=== PATIENT | female | born 1995 | race Caucasian/White ===

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

== ENCOUNTER 2017-07-17 13:33 | Emergency (ER) | payer OTHER ==
[2017-07-17 13:49] VITALS: BP 133/69
--- NOTE | 2017-07-17 15:03 | UC ---
Skin Complaint HPI - HPI Summary HPI Summary: 07/14/17. SLEPT IN A PLACE WITH BEDBUGS. HAS ITCHY WELTS ALL OVER HER BUDY. NO PAIN. NO FEVER. RASH NOT SPREADING. STATES SHE IS ALLERGIC TO BUG BITES. NO THORAT CLOSURE. NO LIP SWELLING. NO SOB. - History of Current Complaint Chief Complaint: UCSkin Time Seen by Provider: 07/17/17 14:24 Stated Complaint: BUG BITES RASH Hx Obtained From: Patient Hx Last Menstrual Period: one year ago Onset/Duration: Gradual Onset, Lasting Days, Still Present Skin Exposure Onset/Duration: Days Ago Onset Severity: Mild Current Severity: Mild Pain Intensity: 1 Pain Scale Used: 0-10 Numeric Character: Pruritus, Redness, Raised Aggravating Factor(s): Nothing Alleviating Factor(s): Nothing Associated Signs & Symptoms: Positive: Rash. Negative: Difficulty Breathing, Fever, Chills, Throat Tightening, Abdominal Pain, Bruising, Tenderness, Red Streaks Related History: Insect Bite/Sting, Possible Reaction to: Insect - Allergy/Home Medications Allergies/Adverse Reactions: Allergies Allergy/AdvReac Type Severity Reaction Status Date / Time Sulfa Antibiotics Allergy Intermediate Hives Verified 09/24/16 14:07 Penicillins Allergy Hives Verified 07/17/17 13:50 Review of Systems Constitutional: Negative Skin: Rash Eyes: Negative ENT: Negative Respiratory: Negative Cardiovascular: Negative Gastrointestinal: Negative Genitourinary: Negative Motor: Negative Neurovascular: Negative Musculoskeletal: Negative Neurological: Negative Psychological: Negative Is Patient Immunocompromised?: No All Other Systems Reviewed And Are Negative: Yes PMH/Surg Hx/FS Hx/Imm Hx Previously Healthy: Yes - Surgical History Surgical History: None - Family History Known Family History: Positive: None, Other - DM - aunt, gallblader removed - mother Family History: positive for biploar disorder in paternal half brother - Social History Occupation: Unemployed Lives: With Family Alcohol Use: Rare Substance Use Type: None Smoking Status (MU): Light Every Day Tobacco Smoker Type: Cigarettes Amount Used/How Often: 3-4 CIG/DAY Length of Time of Smoking/Using Tobacco: 3 YEARS Have You Smoked in the Last Year: Yes Household Exposure Type: Cigarettes - Immunization History Most Recent Influenza Vaccination: 07/11/14 Most Recent Pneumonia Vaccination: never Vaccination Up to Date: Yes Physical Exam Triage Information Reviewed: Yes Appearance: Well-Appearing, No Pain Distress, Well-Nourished Vital Signs: Initial Vital Signs Temp 98.0 F 07/17/17 13:45 Pulse 113 07/17/17 13:45 Resp 18 07/17/17 13:45 BP 133/69 07/17/17 13:45 Pulse Ox 100 07/17/17 13:45 Vital Signs Reviewed: Yes Eye Exam: Normal ENT Exam: Normal Dental Exam: Normal Neck exam: Normal Neck: Positive: Supple, Nontender, No Lymphadenopathy Respiratory Exam: Normal Respiratory: Positive: Chest non-tender, Lungs clear, Normal breath sounds, No respiratory distress, No accessory muscle use Cardiovascular Exam: Normal Cardiovascular: Positive: RRR, No Murmur, Pulses Normal, Brisk Capillary Refill Abdominal Exam: Normal Abdomen Description: Positive: Nontender, No Organomegaly Musculoskeletal Exam: Normal Neurological Exam: Normal Psychological Exam: Normal Skin: Positive: rashes - DIFFUSE Course/Dx - Differential Diagnoses - Skin Complaint Differential Diagnoses: Cellulitis, Contact Dermatitis, Poison Dianne, Poison [place], Tick Born Illness, Viral Exanthem - Diagnoses Provider Diagnoses: BED BUGS Discharge - Discharge Plan Condition: Stable Disposition: HOME Prescriptions: predniSONE TAB* [Deltasone TAB*] 60 mg PO DAILY #9 tab Patient Education Materials: Insect Bite or Sting (ED), Bed Bugs (ED) Referrals: Ramos Gray NP [Primary Care Provider] -
== END 2017-07-17 14:49 | disposition home or self-care (01) ==
LOC: UCEAST 13:33
DX: T14.8XXA Other injury of unspecified body region, initial encounter (principal); W57.XXXA Bitten or stung by nonvenomous insect and other nonvenomous arthropods, initial encounter; Y92.9 Unspecified place or not applicable; R21 Rash and other nonspecific skin eruption; Z11.4 Encounter for screening for human immunodeficiency virus [HIV]; F17.210 Nicotine dependence, cigarettes, uncomplicated
CPT/HCPCS: 36415; 86703; 99212; G0463

== ENCOUNTER 2017-08-25 02:24 | Emergency (ER) | payer OTHER, MEDICAID ==
[2017-08-25 02:41] VITALS: BP 148/84
== END 2017-08-25 05:40 | disposition left against medical advice (07) ==
LOC: ED 02:24
DX: R07.9 Chest pain, unspecified (principal); Z53.21 Procedure and treatment not carried out due to patient leaving prior to being seen by health care provider
CPT/HCPCS: 93005

== ENCOUNTER 2017-10-05 12:41 | Emergency (ER) | payer MEDICAID, OTHER ==
--- NOTE | 2017-10-05 13:54 | ED ---
GI/ HPI - HPI Summary HPI Summary: 22 female presents to ED with complaints of needing testing. Patient states this past Tuesday09/30/17, she had sexual intercourse with ex and did not use protection. Partner does have history of chlamydia per patient however does not know STD history currently. States she also had history of chlamydia. States she has been having increased discharge, white/clear in color "sometimes clumpy " and she believes an odor at times, began 3 days ago. Denies pain. Stats she also feels pressure when she urinates and some burning/itching at times. Also has had times of having to go to urinate but does not urinate much. She is concerned for STD's. No abdominal pain, fever/chills, dysparenuia or genitalia rash/bumps. No other complaints. No PMHx. Denies blood in urine. Normal bowel movements. Denies pain. . Has copper IUD and is without concern for . 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 - History of Current Complaint Chief Complaint: EDUrogenitalProblems Time Seen by Provider: 10/05/17 13:15 Stated Complaint: NEEDS TESTING Hx Obtained From: Patient Hx Last Menstrual Period: one year ago Onset/Duration: Started Days Ago - ~3, Still Present Timing: Intermittent Current Severity: None Pain Intensity: 0 Location of Pain: None Pain Characteristics: Pressure Associated Signs and Symptoms: Positive: Dysuria, New Sexual Partner, UTI Symptoms Additional Signs & Symptoms: Positive: STD, - 1, Para - 1, IUD - mirena. Negative: Vaginal Bleeding, Vaginal Discharge Aggravating Factor(s): Urination Alleviating Factor(s): Nothing - Allergy/Home Medications Allergies/Adverse Reactions: Allergies Allergy/AdvReac Type Severity Reaction Status Date / Time MS Sulfa Antibiotics Allergy Intermediate Hives Verified 08/25/17 02:40 [Sulfa Antibiotics] MS Penicillins [Penicillins] Allergy Hives Verified 08/25/17 02:40 PMH/Surg Hx/FS Hx/Imm Hx Endocrine/Hematology History: Denies: Hx Diabetes, Hx Thyroid Disease Cardiovascular History: Denies: Hx Hypertension Respiratory History: Denies: Hx Asthma, Hx Chronic Obstructive Pulmonary Disease (COPD) GI History: Denies: Hx Ulcer Psychiatric History: Reports: Hx Attention Deficit Hyperactivity Disorder - per H+P, Other Psychiatric Issues/Disorders - Reported to have Oppositional [place] Disorder and Borderline Personality. 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 Denies: Hx Hepatitis, Hx Human Immunodeficiency Virus (HIV), Traveled Outside the [place] in Last 30 Days - Family History Known Family History: Positive: None, Other - DM - aunt, gallblader removed - mother Family History: positive for biploar disorder in paternal half brother - Social History Alcohol Use: Rare Hx Substance Use: No Substance Use Type: Reports: None Hx Tobacco Use: Yes Smoking Status (MU): Light Every Day Tobacco Smoker Type: Cigarettes Amount Used/How Often: 3-4 CIG/DAY Length of Time of Smoking/Using Tobacco: 3 YEARS Have You Smoked in the Last Year: Yes Review of Systems Constitutional: Negative Cardiovascular: Negative Respiratory: Negative Positive: see HPI, burning, discharge, frequency All Other Systems Reviewed And Are Negative: Yes Physical Exam Triage Information Reviewed: Yes Vital Signs On Initial Exam: Initial Vitals Temp Pulse Resp BP Pulse Ox 97.5 F 71 17 109/85 99 10/05/17 13:08 10/05/17 13:08 10/05/17 13:08 10/05/17 13:08 10/05/17 13:08 Vital Signs Reviewed: Yes Appearance: Positive: Well-Appearing, No Pain Distress, Well-Nourished Skin: Positive: Warm, Skin Color Reflects Adequate Perfusion, Dry. Negative: Cold, Numb, Cyanosis @ Eyes: Positive: Normal Neck: Positive: Supple, Nontender Respiratory/Lung Sounds: Positive: Clear to Auscultation, Breath Sounds Present. Negative: Rales, Rhonchi, Wheezes Cardiovascular: Positive: Normal, RRR, Pulses are Symmetrical in both Upper and Lower Extremities. Negative: Murmur, Rub Abdomen Description: Positive: Nontender, No Organomegaly, Soft Bowel Sounds: Positive: Present Pelvic Exam: Positive: external exam normal, speculum exam normal, bimanual exam normal, no cerv. motion tender, no masses. Negative: active bleeding, discharge - normal discharge amount and in appearance, tender w/ cervical motion , tender adnexa, tender uterus Musculoskeletal: Positive: Normal, Strength/ROM Intact Neurological: Positive: Normal, Sensory/Motor Intact, Alert, Oriented to Person Place, Time Diagnostics - Vital Signs Vital Signs Temp Pulse Resp BP Pulse Ox 10/05/17 13:08 97.5 F 71 17 109/85 99 - Laboratory Lab Statement: Any lab studies that have been ordered have been reviewed, and results considered in the medical decision making process. GIGU Course/Dx - Course Course Of Treatment: cultures obtained. patient requested testing for all STD including blood work. wanted to be treated preventatively for STDs. although normal physical exam findings and urinalysis. 1+ of leuk and blood, jeni wait for culture result before treatment. no high suscpicion for BV, yanira or UTI at this time due to physical exam findings, PMHx, normal vitals. attempted azithromycin and ceftriaxone however patient refused ceftriaxone. ONLY RECEIVED AZITHROMYCIN. understands concerns and risks for not obtaining this medication and that she may have to return if + gonorrhea. will wait for final culture results. educated on safe sex measures and STD education. Knows to call to ask about lab results pending. no other concern for other etiology at this time. - Diagnoses Differential Diagnoses - Female: Candidiasis, STD, Urinary Tract Infection, Vaginitis Provider Diagnoses: Vaginal discharge, Screening examination for STD (sexually transmitted disease) , Dysuria Discharge - Discharge Plan Condition: Stable Disposition: HOME Patient Education Materials: Sexually Transmitted Diseases (ED), Condom Use (ED ), Safe Sex (ED), Dysuria (ED) Referrals: Ramos Gray, PULP COOKER [Primary Care Provider] - Additional Instructions: You will hear about culture results if positive, pending 3-7 days, including urine culture results. You may need to return for treatment if certain culture comes back positive due to refusal of IM medication. If you do not hear however are still wondering and would like to know results have been received and are negative please call [phone]. Any new or worsening symptoms please seek medical attention promptly. Follow up with PCP and OBGYN.
[2017-10-05 14:13] LABS: Urine Appearance Clear; Urine Blood 1+ (Negative); Urine Color Yellow; Urine Ketones Negative (Negative); Urine Protein Negative (Negative); Urine Specific Gravity 1.013 (1.010-1.030); Urine Urobilinogen Negative (Negative)
[2017-10-05] MEDS ORDERED: Azithromycin TAB* 250 MG PO ONE (14:49)
[2017-10-05] MEDS ORDERED: cefTRIAXone VIAL(*) 250 MG VIAL IM ONE (14:51)
[2017-10-05 15:25] VITALS: BP 112/85
--- NOTE | 2017-10-07 09:16 | ED ---
Progress - Progress Note Progress Note: Patient's vaginal culture reveals Gardnerella. She does report she has symptoms of vaginal irritation and discharge. She was treated in the ED empirically for gonorrhea and chlamydia. She continues to have symptoms as the Gardnerella has not been treated yet. She is in [facility] at this time and would prefer her prescription be called into the [facility] at [address] Tarsha called into this pharmacy. Education about condition, prevention, medication (including do not take with ETOH), danger signs and symptoms and when to go to the ED. Patient agrees with plan. Course/Dx - Course Course Of Treatment: cultures obtained. patient requested testing for all STD including blood work. wanted to be treated preventatively for STDs. although normal physical exam findings and urinalysis. 1+ of leuk and blood, jeni wait for culture result before treatment. no high suscpicion for BV, yanira or UTI at this time due to physical exam findings, PMHx, normal vitals. attempted azithromycin and ceftriaxone however patient refused ceftriaxone. ONLY RECEIVED AZITHROMYCIN. understands concerns and risks for not obtaining this medication and that she may have to return if + gonorrhea. will wait for final culture results. educated on safe sex measures and STD education. Knows to call to ask about lab results pending. no other concern for other etiology at this time. - Diagnoses Provider Diagnoses: Vaginal discharge, Screening examination for STD (sexually transmitted disease) , Dysuria
== END 2017-10-05 15:23 | disposition home or self-care (01) ==
LOC: ED 12:41
DX: N89.8 Other specified noninflammatory disorders of vagina (principal); R30.0 Dysuria; F17.210 Nicotine dependence, cigarettes, uncomplicated; Z11.3 Encounter for screening for infections with a predominantly sexual mode of transmission
CPT/HCPCS: 81003; 81015; 87086; 87480; 87491; 87510; 87591; 87661; 96372; 99282; A9270-GY

== ENCOUNTER 2017-10-30 17:31 | Emergency (ER) | payer MEDICAID ==
[2017-10-30] MEDS ORDERED: Clindamycin CAP* 150 MG PO ONE (19:26)
--- NOTE | 2017-10-30 19:29 | ED ---
Throat Pain/Nasal Congestion - HPI Summary HPI Summary: 22-year-old female presents with dental pain past 5 days. She states she has a history of dental pain. this patient doesn't have a dentist. She denies any drainage from the area. She denies any fevers. She has a chest pain or shortness of breath. She is concerned is infected. She denies any swelling to the area. She states pain is worst the past day . She has been taking ibuprofen for her pain. - History of Current Complaint Chief Complaint: EDDentalPain Time Seen by Provider: 10/30/17 19:04 - Allergies/Home Medications Allergies/Adverse Reactions: Allergies Allergy/AdvReac Type Severity Reaction Status Date / Time Penicillins Allergy Intermediate Hives Verified 10/30/17 17:38 Sulfa (Sulfonamide Allergy Intermediate Hives Verified 10/30/17 17:38 Antibiotics) PMH/Surg Hx/FS Hx/Imm Hx Endocrine/Hematology History: Denies: Hx Diabetes, Hx Thyroid Disease Cardiovascular History: Denies: Hx Hypertension Respiratory History: Denies: Hx Asthma, Hx Chronic Obstructive Pulmonary Disease (COPD) GI History: Denies: Hx Ulcer Psychiatric History: Reports: Hx Attention Deficit Hyperactivity Disorder - per H+P, Other Psychiatric Issues/Disorders - Reported to have Oppositional [place] Disorder and Borderline Personality. 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 Denies: Hx Hepatitis, Hx Human Immunodeficiency Virus (HIV), Traveled Outside the [place] in Last 30 Days - Family History Known Family History: Positive: None, Other - DM - aunt, gallblader removed - mother Family History: positive for biploar disorder in paternal half brother - Social History Alcohol Use: Rare Hx Substance Use: No Substance Use Type: Reports: None Hx Tobacco Use: Yes Smoking Status (MU): Light Every Day Tobacco Smoker Type: Cigarettes Amount Used/How Often: 3-4 CIG/DAY Length of Time of Smoking/Using Tobacco: 3 YEARS Have You Smoked in the Last Year: Yes Review of Systems Negative: Fever Positive: Dental Pain Negative: Chest Pain Negative: Shortness Of Breath All Other Systems Reviewed And Are Negative: Yes Physical Exam Triage Information Reviewed: Yes Vital Signs On Initial Exam: Initial Vitals Temp Pulse Resp BP Pulse Ox 97.9 F 88 15 137/85 99 10/30/17 17:35 10/30/17 17:35 10/30/17 17:35 10/30/17 17:35 10/30/17 17:35 Vital Signs Reviewed: Yes Appearance: Positive: Well-Appearing Skin: Positive: Warm, Dry Head/Face: Positive: Normal Head/Face Inspection Eyes: Positive: Normal, EOMI, FILOMENA, Conjunctiva Clear ENT: Positive: Normal ENT inspection, Pharynx normal, TMs normal Dental: Positive: Percussion Tenderness @ - 17, Gross Decay/Caries @ - 17. Negative: Abscess @ Neck: Positive: Supple, Nontender, No Lymphadenopathy Respiratory/Lung Sounds: Positive: Clear to Auscultation, Breath Sounds Present Cardiovascular: Positive: Normal, RRR Abdomen Description: Positive: Nontender, Soft Bowel Sounds: Positive: Present Musculoskeletal: Positive: Normal Neurological: Positive: Normal Psychiatric: Positive: Normal Diagnostics - Vital Signs Vital Signs Temp Pulse Resp BP Pulse Ox 10/30/17 17:35 97.9 F 88 15 137/85 99 - Laboratory Lab Statement: Any lab studies that have been ordered have been reviewed, and results considered in the medical decision making process. EENT Course/Dx - Course Course Of Treatment: 22-year-old female presents with dental pain past 5 days. She states she has a history of dental pain. this patient doesn't have a dentist. She denies any drainage from the area. She denies any fevers. She has a chest pain or shortness of breath. She is concerned is infected. She denies any swelling to the area. She states pain is worst the past day . She has been taking ibuprofen for her pain. on exam tenderness 14 with no abscess felt. will treat with clindamycin and have follow up with primary. patient understands and agrees with plan. - Differential Diagnoses Differential Diagnoses: Dental Abscess, Dental Caries, Fractured Tooth - Diagnoses Provider Diagnoses: Pain, dental Discharge - Discharge Plan Condition: Good Disposition: HOME Prescriptions: Clindamycin Cap(NF) [Clindamycin Cap 300 mg Cap(NF)] 300 mg PO TID #29 cap Patient Education Materials: Toothache (ED) Referrals: Ramos Gray NP [Primary Care Provider] - Additional Instructions: Take antibiotics: three times a day for 10 days Use normal pain medication Avoid hard, crunchy food until seen by dentist Return to ED if develop any new or worsening symptoms Establish care with dentist as soon as possible Images - Images Dental: 1 - pain
[2017-10-30 19:45] VITALS: BP 130/88
== END 2017-10-30 19:48 | disposition home or self-care (01) ==
LOC: ED 17:31
DX: K08.89 Other specified disorders of teeth and supporting structures (principal); F17.210 Nicotine dependence, cigarettes, uncomplicated; Z88.0 Allergy status to penicillin; Z88.2 Allergy status to sulfonamides
CPT/HCPCS: 99282; A9270-GY

== ENCOUNTER 2018-12-21 19:33 | Emergency (ER) | payer SELFPAY ==
[2018-12-21 19:48] VITALS: BP 116/81
--- NOTE | 2018-12-21 20:44 | UC ---
Complaint Female HPI - HPI Summary HPI Summary: Approximately 40 days post LMP, desired , confirmed with tests at [facility] and [facility]. She has had 2 ultrasound scans without a heart but gestational sac seen. Was diagnosed with UTI at [facility], has taken 5 days of antibiotics, but has persistent cramping. Here to ensure that the UTI has resolved. Has increased vaginal discharge. USS pending on 12/25 at [facility], and has OB appointment pending later next week. but thinks that she had a and miscarriage in September 2018, when she had heavy flow, cramping and thinks that she passed material. First complicated by pain and cramping. Declined a pelvic check tonight and also declined self swab with [facility]. - History Of Current Complaint Chief Complaint: UCGI Stated Complaint: ABDOMINAL COMPLAINT Hx Obtained From: Patient Hx Last Menstrual Period: one year ago Onset/Duration: Gradual Onset, Lasting Weeks Timing: Constant Severity Initially: Mild Severity Currently: Mild Pain Intensity: 4 Character: Cramping Aggravating Factor(s): Nothing Alleviating Factor(s): Nothing Associated Signs And Symptoms: Positive: Negative - Risk Factors Ectopic Risk Factor: Negative - ruled out at [facility] Ovarian Torsion Risk Factor: Negative - Allergies/Home Medications Allergies/Adverse Reactions: Allergies Allergy/AdvReac Type Severity Reaction Status Date / Time Penicillins Allergy Intermediate Hives Verified 12/21/18 19:48 Sulfa (Sulfonamide Allergy Intermediate Hives Verified 12/21/18 19:48 Antibiotics) Home Medications: Home Medications NK [No Home Medications Reported] 12/21/18 [History Confirmed 12/21/18] PMH/Surg Hx/FS Hx/Imm Hx Previously Healthy: Yes - Surgical History Surgical History: None Surgery Procedure, Year, and Place: n/a - Family History Known Family History: Positive: Cardiac Disease, Diabetes - aunt with DM, Other - DM - aunt, gallblader removed - mother Family History: positive for biploar disorder in paternal half brother - Social History Occupation: Unemployed Lives: With Family - lives with boyfriend. Currently her son is living with an aunt Alcohol Use: None Substance Use Type: None Smoking Status (MU): Heavy Every Day Tobacco Smoker Type: Cigarettes Amount Used/How Often: 3-4 CIG/DAY Length of Time of Smoking/Using Tobacco: 3 YEARS Have You Smoked in the Last Year: Yes Household Exposure Type: Cigarettes - Immunization History Most Recent Influenza Vaccination: 07/11/14 Most Recent Pneumonia Vaccination: never Vaccination Up to Date: Yes Review of Systems All Other Systems Reviewed And Are Negative: Yes Constitutional: Positive: Negative Skin: Positive: Negative Eyes: Positive: Negative ENT: Positive: Negative Respiratory: Positive: Negative Cardiovascular: Positive: Negative Gastrointestinal: Positive: Negative Genitourinary: Positive: Frequency Motor: Positive: Negative Neurovascular: Positive: Negative Musculoskeletal: Positive: Negative Neurological: Positive: Negative Psychological: Positive: Negative Is Patient Immunocompromised?: No Physical Exam Triage Information Reviewed: Yes Appearance: Well-Appearing, Pain Distress - mild Vital Signs: Initial Vital Signs Temp 97.6 F 12/21/18 19:43 Pulse 104 12/21/18 19:43 Resp 20 12/21/18 19:43 BP 116/81 12/21/18 19:43 Pulse Ox 100 12/21/18 19:43 Vital Signs Reviewed: Yes ENT: Positive: Normal ENT inspection Respiratory: Positive: Lungs clear, Normal breath sounds Cardiovascular: Positive: RRR, No Murmur Abdomen Description: Positive: No Organomegaly, Soft, Other: - diffuse tenderness without guarding or peritoneal signs.. Negative: CVA Tenderness (R) , CVA Tenderness (L), Distended, Guarding Musculoskeletal Exam: Normal Neurological: Positive: Alert, Muscle Tone Normal Psychological Exam: Normal Skin Exam: Normal Complaint Female Dx - Differential Dx/Diagnosis Differential Diagnosis/HQI/PQRI: , Urinary Tract Infection Provider Diagnosis: Discharge - Sign-Out/Discharge Documenting (check all that apply): Patient Departure All imaging exams completed and their final reports reviewed: No Studies - Discharge Plan Condition: Stable Disposition: HOME Patient Education Materials: (ED) Referrals: No Primary Care Phys,NOPCP [Primary Care Provider] - Additional Instructions: Today's urine does not show signs of infection. Please follow up next week with the center and with OBGYN as arranged. If you have increased bleeding or cramping, please follow up in the emergency room. - Billing Disposition and Condition Condition: STABLE Disposition: Home
== END 2018-12-21 20:56 | disposition home or self-care (01) ==
LOC: UCEAST 19:33
DX: Z34.81 Encounter for supervision of other normal pregnancy, first trimester (principal); Z88.0 Allergy status to penicillin; Z88.2 Allergy status to sulfonamides; F17.210 Nicotine dependence, cigarettes, uncomplicated
CPT/HCPCS: 81003; 99211; G0463

== ENCOUNTER 2019-02-26 14:48 | Emergency (ER) | payer SELFPAY ==
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
--- OUTSIDE RECORDS SUMMARY | 2019-02-26 15:19 | XMS REPORT | Continuity of Care Document ---
:1995 External Reference #:[id number] Author Name Kimberly Duke MD, PHD Address [address], [address] [place] [address] Care Team Providers Name Role Phone Kimberly Duke MD, PHD Care Team Information Set Up And Charger Unavailable Kimberly Duke MD, PHD Primary Care Physician Unavailable Payers Date Identification Numbers Payment Provider Subscriber Policy Number: [id number] [place] [employer] Georgette Acosta PayID: [id number] [address] [address] [place] [address] Expires: 2018 Policy Number: [id number] [place] Medicaid Georgette Acosta PayID: [id number] [address] [address] [place] [address] Expires: 2019 Policy Number: [id number] Medicaid Georgette Acosta PayID: [id number] [address] [place] [address] Problems Active Problems Provider Date Nicotine withdrawal [...] (10 or fewer cigarettes/day) Smoking Status Reviewed: 01/12/19 Light tobacco smoker (10 or fewer cigarettes/day) Allergies, Adverse Reactions, Alerts Active Allergies Reaction Severity Comments Date Ampicillin 12/28/2018 Sulfa Drugs 12/28/2018 Medications Active Medications SIG Qnty Indications Ordering Provider Date Ondansetron take one tablet 15tabs Kimberly Duke, 01/31/2019 4mg Tablets by mouth every PHD APARNA Dispers 8 hours as needed for vomiting. Valacyclovir HCL 1 by mouth 90tabs Kimberly Duke, 01/23/2019 500mg every day PHD APARNA Tablets Complete 1 tab by mouth 90tabs Z3A.09 Kimberly Duke, 01/12/2019 every day PHD APARNA 14-0.4mg Tablets Dha 2 cap by mouth 120caps Z3A.09 Kimberly Duke, 01/12/2019 200mg twice a day MD PHD Capsules with meals D2000 Ultra Strength 1 cap by mouth 60caps Z3A.09 Kimberly Duke, 2018 twice a day wc , PHD 2000Unit Capsules HM Vitamin B6 1 tab by mouth 90tabs O21.0 Kimberly Duke, 12/28/2018 100mg three times a PHD APARNA Tablets day as needed for nausea Gummies/Dha 2 tab by mouth 180units N91.2 Kimberly Duke, 2018 & Folic Acid every day , PHD 0.4-32.5mg Chewtabs Unisom Sleepmelts 1/2 tab by 60tabs N91.2 Kimberly Duke, 12/28/2018 25mg mouth four PHD APARNA Tablets Dispers times a day as needed for nausea History Medications No Active Medications Unknown 12/28/2018 - 12/28/2018 Vital Signs Date Vital Result Comment 01/12/2019 2:37pm BP Systolic 144 mmHg BP Diastolic 83 mmHg Body Temperature 98.1 F Heart Rate 94 /min Respiratory Rate 18 /min Height 67 inches 5'7" Weight 194.00 lb BMI (Body Mass Index) 30.4 kg/m2 BSA (Body Surface Area) 2.00 m2 Parlin body weight in kilograms 61 kg 12/28/2018 10:19am BP Systolic 133 mmHg BP Diastolic 81 mmHg Body Temperature 98.6 F Heart Rate 87 /min Respiratory Rate 18 /min Height 67 inches 5'7" Weight 196.00 lb BMI (Body Mass Index) 30.7 kg/m2 BSA (Body Surface Area) 2.00 m2 Parlin body weight in kilograms 61 kg O2 % BldC Oximetry 98 % Results Test Date Facility Test Result H/L Range Note HPV High Risk - 01/12/2019 [facility] HPV High Risk Results on 1, 2 Alt Ref [facility] [address] [place] [address] [phone] Laboratory test 01/12/2019 [facility] Hepatitis B Reactive . [address] [place] [address] Antibody [phone] Urine Culture 01/12/2019 [facility] Urine Culture URETHRAL CAROLANN [address] [place] [address] [phone] Quantity 10,000 - 50,000 <SEE NOTE> 4 Laboratory 01/12/2019 [facility] Vitamin 12.8 Low 30.0-100.0 5 test finding [address] D,25-Hydroxy ng/mL [place], [place] [id number] [phone] HSV II,Igg,Type Specific 5.03 index High 0.00-0.90 6 HIV Screen 4TH 01/12/2019 [facility] HIV Screen 4th Non Reactive Non Reactive [address] Reflex [address] [place] [address] wRfx [phone] Laboratory 01/12/2019 [facility] Treponema Negative Negative test finding [address] [place] [address] [place] [phone] CBC 01/12/2019 [facility] White Blood 7.6 K/uL N 3.1-10.7 W/Automated [address] Count Diff [place], [place] [id number] [phone] Red Blood Count 4.22 M/uL N 3.90-5.40 [...] 40.4-72.8 Lymph % 27.7 % N 20.0-42.0 Stanton % 5.8 % N 4.3-13.2 Eo% 2.6 % N 0.0-6.6 Bas% 0.3 % N 0.0-1.1 Immature Grans 0.7 % N 0.0-5.0 NRBC % 0.0 /100WBC < 10/ 100 WBC Neut# 4.78 K/uL N 1.8-7.0 Lymph # 2.10 K/uL N 1.0-4.0 Stanton # 0.44 K/uL N 0.3-0.9 Eos # 0.20 K/uL N 0.0-0.5 Baso # 0.02 K/uL N 0.0-0.1 Immature Grans Absolute 0.05 K/uL NRBC # 0.00 K/uL Genital Culture W/ Gram 01/12/2019 [facility] Gram Stain <pending> Stain [address] [place], [place] [id number] [phone] Gram Stain GRAM STAIN INDIC <SEE NOTE> 8 Gram Stain MODERATE GR POS. <SEE NOTE> 9 Gram Stain NO WHITE BLOOD C <SEE NOTE> 10 Genital Culture GENITAL CAROLANN Cystic 01/12/2019 [facility] Cystic [id number] Fibrosis,Dna [address] Fibrosis Analysis [place], [place] [id number] [phone] Chlmaydia/GC/Tri 01/12/2019 [facility] Chlamydia NEGATIVE Negative chomonas PCR [address] trachomatis, [place] [address] PCR [phone] Neisseria gonorrhoeae, PCR NEGATIVE Negative 12 Trichomonas vaginalis PCR NEGATIVE Negative Specimen Type: Genital Laboratory test 01/12/2019 [facility] Rubella IgG 2.0 index Immune [address] Antibody >0.99 [place] [address] [phone] Laboratory test 01/12/2019 [facility] Hepatitis B <pending> finding [address] [place] [address] Antigen [phone] Hepatitis C Antibody < 0.1 s/corat 0.0-0.9 14 Lead,Blood (Adult) <1 g/dL 0-4 15 Type And Screen 01/12/2019 [facility] Patient Blood Type A POS N [address] [place] [address] [phone] Antibody Screen Negative N Negative Ua RFX Micro & Culture II 01/12/2019 [facility] Urine Color STRAW Yellow [address] [place] [address] [phone] Urine Clarity CLEAR Clear Urine Glucose - Dipstick NEGATIVE mg/dL Negative Urine Bilirubin - Dipstick NEGATIVE Negative Urine Ketone NEGATIVE mg/dL Negative Urine Specific Rush <=1.005 Low 1.010-1.030 Urine Blood NEGATIVE Negative [...] Amphetamines (Urine) Negative Abuse-Urine Screen [address] [place], [place] [address] [phone] Barbiturates (Urine) Negative Benzodiazepines (Urine) Negative Cannabinoids (Urine) Negative Cocaine Metabolite (Urine) Negative Methadone (Urine) Negative Opiates (Urine) Negative Urine Cutoffs * 16 Glycohemoglobin A1c 01/12/2019 [facility] Glycohemoglobin 4.7 % N 4.2-6.3 17 [address] (A1c) [place], [place] [address] [phone] eAG 88 mg/dL Urine Dipstick 01/12/2019 [facility] Inhouse Ua Color yellow Yellow Ua Clarity clear Clear Ua Leuko negative Negative Ua Nitrite negative Negative Ua Urobilinogen 0.2 0.2 - 1.0 E.U./dL Ua Protein negative Negative Ua PH 6.5 6.5-7.5 Ua Blood negative Negative Ua Specific Rush 1.010 1.010-1.030 Ua Ketones negative Negative Ua Bilirubin negative Negative Ua Glucose negative Negative Urine Dipstick 12/28/2018 [facility] Inhouse Ua Color YELLOW Yellow Ua Clarity CLEAR Clear Ua Leuko Trace Negative Ua Nitrite Negative Negative Ua Urobilinogen Negative Low 0.2 - 1.0 E.U./dL Ua Protein Negative Negative Ua PH 5.0 Low 6.5-7.5 Ua Blood Trace Negative Ua Specific Rush 1.000 Low 1.010-1.030 Ua Ketones 1+ High Negative Ua Bilirubin Negative Negative Ua Glucose Negative Negative Urine HCG 12/28/2018 [facility] Urine HCG POSITIVE Abnormal Negative 18, (Qualitative) [address] (Qualitative) 19 [place] [address] [phone] Source: URINE, CLEAN CAT <SEE NOTE> 20 Urine Culture 12/28/2018 [facility] Urine Culture NO GROWTH: [address] FINAL <[place] [address] NOTE> [phone] Ua RFX Micro & 12/28/2018 [facility] Urine Color YELLOW Yellow Culture II [address] [place] [address] [phone] Urine Clarity CLEAR Clear Urine Glucose - Dipstick NEGATIVE mg/dL Negative Urine Bilirubin - Dipstick NEGATIVE Negative Urine Ketone NEGATIVE mg/dL Negative Urine Specific Rush <=1.005 Low 1.010-1.030 Urine Blood NEGATIVE Negative Urine PH 6.0 Low 6.5-7.5 Urine Protein - Dipstick NEGATIVE mg/dL Negative Urine Urobilinogen - Dipstick 0.2 E.U./dL N 0.2-1.0 Urine Nitrite - Dipstick NEGATIVE Negative Urine Leuk Esterase SMALL Abnormal Negative Urine RBC 0-2 rbc/hpf 0-2 Urine WBC 2-5 wbc/hpf 0-7 Urine Epithelial Cells MODERATE /lpf None Seen 22 Urine Bacteria MODERATE Abnormal None Seen Urine Amorph Sediment SMALL Negative Source: URINE, CLEAN CAT <SEE NOTE> 23 1 Z3A.09 2 Hard copy of report to be sent by mail Report may be viewed in Clinical Review, or in PCI under Medical Record Forms 3 Non Reactive: Inconsistent with immunity, less than 10 mIU/mL Reactive: Consistent with immunity, greater than 9.9 mIU/mL Verified by repeat analysis 4 10,000 - 50,000 CFU/mL 5 Vitamin D deficiency has been defined by the [place] of [employer] and an Endocrine Society practice guideline as a level of serum 25-OH vitamin D less than 20 ng/mL (1,2). The Endocrine Society went on to further define vitamin D insufficiency as a level between 21 and 29 ng/mL (2). 1. IOM ([place] of Medicine). 2010. Dietary reference intakes for calcium and D. [place]: The National Academies Press. 2. Niall MF, Jose Juan WYMAN, Leoncio FARFAN, et al. Evaluation, treatment, and prevention of vitamin D deficiency: an Endocrine Society clinical practice guideline. JCEM. 2010; 96(5):1911-30. Performed at: [address] [id number] Mast Maker: Nga Swenson MD, Phone: [phone] 6 Negative <0.91 Equivocal 0.91 - 1.09 Positive >1.09 Note: Negative indicates no antibodies detected to HSV-2. Equivocal may suggest early infection. If clinically appropriate, retest at later date. Positive indicates antibodies detected to HSV-2. Performed at: [address] [id number] Mast Maker: Nga Swenson MD, Phone: [phone] 7 Performed at: [address] [id number] Mast Maker: Nga Swenson MD, Phone: [phone] 8 GRAM STAIN INDICATES NORMAL GENITAL CAROLANN 9 MODERATE GR POS. BACILLI SUGGESTIVE OF LACTOBACILLUS SP. 10 NO WHITE BLOOD CELLS 11 FORWARDED TO REFERENCE LABORATORY. 12 A negative result for either C. trachomatis and/or N. gonorrhoeae does not preclued an infection because results are dependent on adequate specimen collection, absence of inhibitors, and sufficient DNA to be detected. 13 Non-immune <0.90 Equivocal 0.90 - 0.99 Immune >0.99 Performed at: [address] [id number] Mast Maker: Nga Swenson MD, Phone: [phone] Performed at: [address] [id number] Mast Maker: Coty Merlos MD, Phone: [phone] Values <5.0 IU/mL are considered negative for IgG antibodies to rubella virus. 14 INFCE Result Units: s/co ratio Negative: < 0.8 Indeterminate: 0.8 - 0.9 Positive: > 0.9 The CDC recommends that a positive HCV antibody result be followed up with a HCV Nucleic Acid Amplification test (176099). 15 Analysis by inductively coupled plasma/mass spectrometry (ICP/MS) This test was developed and its performance characteristics determined by [employer]. It has not been cleared or approved by the Food and Drug Administration. Environmental Exposure: WHO Recommendation <20 Occupational Exposure: OSHA Lead Std 40 ANNMARIE 30 Detection Limit=1 16 URINE SPECIMENS ARE SCREENED AT THE LISTED CUTOFFS DRUG CLASS INITIAL TEST LEVEL Amphetamines 1000 ng/mL Barbiturates 200 ng/mL Benzodiazepines 200 ng/mL Cannabinoids 50 ng/mL Cocaine Metabolite 300 ng/mL Methadone 300 ng/mL Opiates 300 ng/mL Any PRESUMPTIVE POSITIVE findings are UNCONFIRMED. Confirmatory testing is suggested if findings are unexpected. Please contact laboratory if confirmatory testing is desired. SPECIMENS ARE HELD FOR 72 HOURS. 17 Elevated levels of HbA1c suggest the need for more aggressive treatment of glycemia. The [place] [employer] recommends that a primary goal of therapy should be a HbA1c of <7% and that physicians should re-evaluate the treatment regimen in patients with HbA1c values consistently >8%. 18 N91.2 19 Method: Quidel QuickVue One-Step Immunoassay 20 URINE, CLEAN CATCH 21 NO GROWTH: FINAL REPORT 22 POSSIBLE UROGENITAL CONTAMINATION. 23 URINE, CLEAN CATCH Encounters Type Date Location Provider Dx Diagnosis Office Visit 12/28/2018 [facility] Kimberly Duke, N91.2 Amenorrhea, 10:15a Eitan Carlisle MD, PHD unspecified O21.0 Mild hyperemesis gravidarum F17.203 Nicotine dependence unspecified, with withdrawal Plan of Treatment Future Appointment(s):02/09/2019 1:00 pm - Kimberly Duke [facility] PHD [facility]12/28/2018 - Kimberly Duke MD, PHDN91.2 Amenorrhea, unspecifiedNew Medication: Gummies/Dha & Folic Acid 0.4-32.5 mg - 2 tab by mouth every dayUnisom Sleepmelts 25 mg - 1/2 tab by mouth four times a day as needed for nauseaFollow up:2 week follow up for initial visit. Records releases for [facility] delivery records center.O21.0 Mild hyperemesis gravidarumNew Medication:HM Vitamin B6 100 mg - 1 tab by mouth three times a day as needed for nauseaComments:Discussed Healthy Families -F17.203 Nicotine dependence unspecified, with withdrawal
[2019-02-26 16:20] LABS: Urine Appearance Cloudy; Urine Bacteria 1+ (Absent); Urine Bilirubin Negative (Negative); Urine Blood 1+ (Negative); Urine Color Yellow; Urine Glucose Negative (Negative); Urine Ketones Negative (Negative); Urine Nitrite Negative (Negative); Urine Protein Negative (Negative); Urine Red Blood Cell 1+(3-5/hpf) (Absent); Urine Specific Gravity 1.005 (1.010-1.030); Urine Squamous Epithelial Cell Present (Absent); Urine Urobilinogen Negative (Negative); Urine White Blood Cell Trace(0-5/hpf) (Absent)
[2019-02-26] MEDS ORDERED: NS 0.9% 1000 ML** 1,000 ML IV ONE (17:29)
[2019-02-26] MEDS ORDERED: Acetaminophen TAB* 325 MG PO ONE (18:02)
--- NOTE | 2019-02-26 18:14 | ED ---
Abdominal Pain/Female - HPI Summary HPI Summary: This patient is a 23 year old F presenting to [facility] with a chief complaint of abdominal cramps since 0630 this morning which have persisted throughout the day which is rated a 5/10. She states that she is 15-16 weeks and was feeling nauseas this morning which she thought was her morning sickness, but denies any vomiting. She stated that she went into town for a appointment but her doctor canceled. She stated that the pain became worse and she couldnt ignore it so she took APAP and came to [facility]. She stated that she has had one successful and has had one . Her GPA is 3, 1, 1. She stated that yesterday she had some light spotting with a brownish-red color but did not notice any clots. She had her first at 19. She denies any SOB, CP , fever, chills, headaches, diarrhea and recent sicknesses. APAP helped to alleviate her pain briefly but states that it is still present. She has no aggravating factors. She is currently unemployed and is living with her boyfriend. Patients medication reviewed this visit. - History of Current Complaint Chief Complaint: EDOBProblems Stated Complaint: 15 WEEKS PREG , CRAMPING, Time Seen by Provider: 02/26/19 17:29 Hx Obtained From: Patient ?: Yes - 15-16 weeks Onset/Duration: Sudden Onset - 0630 am, Lasting Hours, Still Present Timing: Constant Severity Initially: Moderate Severity Currently: Moderate Pain Intensity: 5 Pain Scale Used: 0-10 Numeric Location: Suprapubic Radiates: No Character: Cramping Aggravating Factor(s): Nothing Alleviating Factor(s): Nothing Associated Signs and Symptoms: Positive: Vaginal Bleeding - had spotting yesterday, brownish-red, Nausea, Other: - abdominal pain described as cramping NEGATIVE: SOB, vomiting and diarrhea. Negative: Fever, Cough, Chest Pain, Urinary Symptoms, Vomiting, Diarrhea Allergies/Adverse Reactions: Allergies Allergy/AdvReac Type Severity Reaction Status Date / Time Penicillins Allergy Intermediate Hives Verified 02/26/19 14:58 Sulfa (Sulfonamide Allergy Intermediate Hives Verified 02/26/19 14:58 Antibiotics) Home Medications: Home Medications ValACYclovir (*) [Valtrex 500 mg (*)] 500 mg PO DAILY 02/26/19 [History Confirmed 02/26/19] PMH/Surg Hx/FS Hx/Imm Hx Previously Healthy: No Endocrine/Hematology History: Denies: Hx Diabetes, Hx Thyroid Disease Cardiovascular History: Denies: Hx Hypertension Respiratory History: Denies: Hx Asthma, Hx Chronic Obstructive Pulmonary Disease (COPD) GI History: Denies: Hx Ulcer Psychiatric History: Reports: Hx Attention Deficit Hyperactivity Disorder - per H+P, Other Psychiatric Issues/Disorders - Reported to have Oppositional [place] Disorder and Borderline Personality. 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 Denies: Hx Hepatitis, Hx Human Immunodeficiency Virus (HIV), Traveled Outside the [place] in Last 30 Days - Family History Known Family History: Positive: Cardiac Disease, Diabetes - aunt with DM, Other - DM - aunt, gallblader removed - mother Family History: positive for biploar disorder in paternal half brother - Social History Occupation: Unemployed Lives: With Family - boyfriend Alcohol Use: None Hx Substance Use: No Substance Use Type: Reports: None Hx Tobacco Use: Yes Smoking Status (MU): Light Every Day Tobacco Smoker Type: Cigarettes Amount Used/How Often: 3-4 CIG/DAY Length of Time of Smoking/Using Tobacco: 3 YEARS Have You Smoked in the Last Year: Yes Review of Systems Negative: Fever, Chills Negative: Chest Pain Negative: Shortness Of Breath, Cough Positive: Abdominal Pain - desbribed as cramping, Nausea. Negative: Vomiting, Diarrhea Negative: Headache All Other Systems Reviewed And Are Negative: Yes Physical Exam Vital Signs On Initial Exam: Initial Vitals Temp Pulse Resp BP Pulse Ox 97.8 F 98 18 136/78 97 02/26/19 14:53 02/26/19 14:53 02/26/19 14:53 02/26/19 14:53 02/26/19 14:53 Diagnostics - Vital Signs Vital Signs Temp Pulse Resp BP Pulse Ox 02/26/19 14:53 97.8 F 98 18 136/78 97 - Laboratory Lab Results: Lab Results 02/26/19 Range/Units 16:01 Urine Color Yellow Urine Appearance Cloudy Urine pH 6.0 (5-9) Ur Specific Union 1.005 L (1.010-1.030) Urine Protein Negative (Negative) Urine Ketones Negative (Negative) Urine Blood 1+ A (Negative) Urine Nitrate Negative (Negative) Urine Bilirubin Negative (Negative) Urine Urobilinogen Negative (Negative) Ur Leukocyte Esterase Trace A (Negative) Urine WBC (Auto) Trace(0-5/hpf) (Absent) Urine RBC (Auto) 1+(3-5/hpf) A (Absent) Ur Squamous Epith Cells Present A (Absent) Urine Bacteria 1+ A (Absent) Urine Glucose Negative (Negative) Result Diagrams: 02/26/19 18:14 Lab Statement: Any lab studies that have been ordered have been reviewed, and results considered in the medical decision making process. - Ultrasound US Ultrasound Interpretation Completed By: Radiologist Summary of Ultrasound Findings: Single living intrauterine fetus with an ultrasound age of 16 weeks 3 days. which is concordant with the clinical age and shows appropriate interval. growth. No sonographic findings to correlate with patient's symptomatology. ED physician has reviewed this report. Discharge - Sign-Out/Discharge Documenting (check all that apply): Patient Departure - discharge Patient Received Moderate/Deep Sedation with Procedure: No - Discharge Plan Condition: Stable Disposition: HOME Patient Education Materials: Nausea and Vomiting in (ED), ( ED) Referrals: [facility] [Provider Group] Kimberly Duke MD [Primary Care Provider] - Additional Instructions: -stay well hydrated - drink plenty of non-caffinated beverages - Okay to take tylenol every 6 hours for pain - eat small, frequent meals - contact the [facility] nurse midwives to schedule a follow-up appointment If you have vaginal bleeding, vaginal leaking fluid, vomiting or any other concerns it is recommended you be re-evaluated - Billing Disposition and Condition Condition: STABLE Disposition: Home - Attestation Statements Document Initiated by Scribe: Yes Documenting Scribe: Artis Gongora Provider For Whom Scribe is Documenting (Include Credential): Hellen Parker MD Scribe Attestation: Artis Cervantes, scribed for Hellen Parker MD on 03/01/19 at 1358. Status of Scribe Document: Viewed
[2019-02-26 18:27] LABS: ABS Basophils 0.1 10^3/ul (0-0.2); ABS Eosinophils 0.1 10^3/ul (0-0.6); ABS Lymphocytes 2.4 10^3/ul (1.0-4.8); ABS Monocytes 0.5 10^3/ul (0-0.8); ABS Neutrophils 7.1 10^3/ul (1.5-7.7); Eosinophil % 1.5 %; Hematocrit 37 % (35-47); Lymphocyte % 23.3 %; Mean Corpuscular HGB Conc 35 g/dL (31-36); Mean Corpuscular Hemoglobin 31 pg (27-31); Mean Corpuscular Volume 87 fL (80-97); Mean Platelet Volume 8.7 fL (7.4-10.4); Platelet Count 224 10^3/uL (150-450); Red Blood Count 4.26 10^6 /uL (3.70-4.87); Red Cell Distribution Width 13 % (10-15); White Blood Count 10.2 10^3/uL (3.5-10.8)
[2019-02-26 20:32] VITALS: BP 135/79
== END 2019-02-26 20:30 | disposition home or self-care (01) ==
LOC: ED 14:48
DX: O21.9 Vomiting of pregnancy, unspecified (principal); Z3A.15 15 weeks gestation of pregnancy; Z88.2 Allergy status to sulfonamides; Z88.0 Allergy status to penicillin; F17.210 Nicotine dependence, cigarettes, uncomplicated
CPT/HCPCS: 36415; 76815; 81003; 81015; 83880; 84702; 85025; 86900; 86901; 87086; 99283; A9270-GY

== ENCOUNTER 2019-03-05 19:38 | Emergency (ER) | payer SELFPAY ==
--- OUTSIDE RECORDS SUMMARY | 2019-03-05 19:51 | XMS REPORT | Continuity of Care Document ---
:1995 External Reference #:[id number] Author Name Kimberly Duke MD, PHD Address [address] [facility], [address] [place] [address] Care Team Providers Name Role Phone Kimberly Duke MD, PHD Care Team Information Master Certified Rv Technician Unavailable Kimberly Duke MD, PHD Primary Care Physician Unavailable Payers Date Identification Numbers Payment Provider Subscriber Policy Number: [id number] Molina Medicaid Georgette Acosta PayID: [id number] [address] [address] [place] [address] Expires: 2018 Policy Number: [id number] Molina Medicaid Georgette Acosta PayID: [id number] [address] [address] [place] [address] Expires: 2019 Policy Number: [id number] Medicaid Georgette Acosta PayID: [id number] [address] [place] [address] Problems Active Problems Provider Date Nicotine withdrawal [...] kg/m2 BSA (Body Surface Area) 1.94 m2 [place] body weight in kilograms 61 kg O2 % BldC Oximetry 98 % 01/12/2019 2:37pm BP Systolic 144 mmHg BP Diastolic 83 mmHg Body Temperature 98.1 F Heart Rate 94 /min Respiratory Rate 18 /min Height 67 inches 5'7" Weight 194.00 lb BMI (Body Mass Index) 30.4 kg/m2 BSA (Body Surface Area) 2.00 m2 [place] body weight in kilograms 61 kg 12/28/2018 10:19am BP Systolic 133 mmHg BP Diastolic 81 mmHg Body Temperature 98.6 F Heart Rate 87 /min Respiratory Rate 18 /min Height 67 inches 5'7" Weight 196.00 lb BMI (Body Mass Index) 30.7 kg/m2 BSA (Body Surface Area) 2.00 m2 [place] body weight in kilograms 61 kg O2 % BldC Oximetry 98 % Results Test Date Facility Test Result H/L Range Note Urinalysis Profile 02/26/2019 [facility] Laboratory Urine Color Yellow [phone] Urine Appearance Cloudy Urine Specific [place] 1.005 Low 1.010-1.030 Urine pH 6.0 N 5-9 Urine Urobilinogen Negative Negative Urine Ketones Negative Negative Urine Protein Negative Negative Urine Leukocytes Trace Abnormal Negative Urine Blood 1+ Abnormal Negative Urine Nitrite Negative Negative Urine Bilirubin Negative Negative Urine Glucose Negative Negative Urine White Blood Cell Trace(0-5/hpf) Absent Urine Red Blood Cell 1+(3-5/hpf) Abnormal Absent Urine Bacteria 1+ Abnormal Absent Urine Squamous Epithelial Cell Present Abnormal Absent Urine Dipstick 02/09/2019 [facility] Ua Color dedrick Yellow Ua Clarity clear Clear Ua Leuko negative Negative Ua Nitrite negative Negative Ua Urobilinogen 0.2 0.2 - 1.0 E.U./dL Ua Protein negative Negative Ua PH 6.5 6.5-7.5 Ua Blood negative Negative Ua Specific [place] 1.025 1.010-1.030 Ua Ketones negative Negative Ua Bilirubin negative Negative Ua Glucose negative Negative Ua RFX Micro & Culture 02/08/2019 [facility] Urine Color YELLOW Yellow 1 II [address] [place] [address] [phone] Urine Clarity CLEAR Clear Urine Glucose - Dipstick NEGATIVE mg/dL Negative Urine Bilirubin - Dipstick NEGATIVE Negative Urine Ketone NEGATIVE mg/dL Negative Urine Specific [place] <=1.005 Low 1.010-1.030 Urine Blood TRACE Negative [...] NOTE> 2 HPV High Risk - 01/12/2019 [facility] HPV High Risk Results on 3, 4 Alt Ref Lab [address] [place], [place] [id number] [phone] Laboratory test 01/12/2019 [facility] Hepatitis B Reactive . [address] [place] [address] Antibody [phone] Urine Culture 01/12/2019 [facility] Urine Culture URETHRAL CAROLANN [address] [place], [place] [address] [phone] Quantity 10,000 - 50,000 <SEE NOTE> 6 Laboratory 01/12/2019 [facility] Vitamin 12.8 Low 30.0-100.0 7 test finding [address] D,25-Hydroxy ng/mL [place], [place] [address] [phone] HSV II,Igg,Type Specific 5.03 index High 0.00-0.90 8 HIV Screen 4TH 01/12/2019 [facility] HIV Screen 4th Non Reactive Non Reactive 9 Gen Reflex [address] [place] [address] wRfx [phone] Laboratory 01/12/2019 [facility] Treponema Negative Negative test finding [address] [place] [address] [place] [phone] CBC 01/12/2019 [facility] White Blood 7.6 K/uL N 3.1-10.7 W/Automated [address] Count Diff [place], [place] [address] [phone] Red Blood Count 4.22 M/uL N 3.90-5.40 [...] 40.4-72.8 Lymph % 27.7 % N 20.0-42.0 [place] % 5.8 % N 4.3-13.2 Eo% 2.6 % N 0.0-6.6 Bas% 0.3 % N 0.0-1.1 Immature Grans 0.7 % N 0.0-5.0 NRBC % 0.0 /100WBC < 10/ 100 WBC Neut# 4.78 K/uL N 1.8-7.0 Lymph # 2.10 K/uL N 1.0-4.0 [place] # 0.44 K/uL N 0.3-0.9 Eos # 0.20 K/uL N 0.0-0.5 Baso # 0.02 K/uL N 0.0-0.1 Immature Grans Absolute 0.05 K/uL NRBC # 0.00 K/uL Genital Culture W/ 01/12/2019 [facility] Gram Stain GRAM STAIN INDIC [address] <SEE NOTE> [place] [address] [phone] Gram Stain MODERATE GR POS. <SEE NOTE> 11 Gram Stain NO WHITE BLOOD C <SEE NOTE> 12 Genital Culture GENITAL CAROLANN Cystic 01/12/2019 [facility] Cystic [phone] 13 Fibrosis,Dna [address] [place] [address] [phone] Chlmaydia/GC/Tri 01/12/2019 [facility] Chlamydia NEGATIVE Negative chomonas PCR [address] trachomatis, [place] [address] PCR [phone] Neisseria gonorrhoeae, PCR NEGATIVE Negative 14 Trichomonas vaginalis PCR NEGATIVE Negative Specimen Type: Genital Laboratory test 01/12/2019 [facility] Rubella IgG 2.0 index Immune [address] Antibody >0.99 [place] [address] [phone] Laboratory test 01/12/2019 [facility] Hepatitis C < 0.1 0.0-0.[address] Antibody s/corat [place], [place] [address] [phone] Lead,Blood (Adult) <1 g/dL 0-4 17 Type And Screen 01/12/2019 [facility] Patient Blood Type A POS N [address] [place] [address] [phone] Antibody Screen Negative N Negative Ua RFX Micro & Culture II 01/12/2019 [facility] Urine Color STRAW Yellow [address] [place], [place] [address] [phone] Urine Clarity CLEAR Clear Urine Glucose - Dipstick NEGATIVE mg/dL Negative Urine Bilirubin - Dipstick NEGATIVE Negative Urine Ketone NEGATIVE mg/dL Negative Urine Specific [place] <=1.005 Low 1.010-1.030 Urine Blood NEGATIVE Negative [...] MODERATE Abnormal None Seen Drugs Of 01/12/2019 [facility] Amphetamines (Urine) Negative Abuse-Urine Screen [address] [place] [address] [phone] Barbiturates (Urine) Negative Benzodiazepines (Urine) Negative Cannabinoids (Urine) Negative Cocaine Metabolite (Urine) Negative Methadone (Urine) Negative Opiates (Urine) Negative Urine Cutoffs * 18 Glycohemoglobin A1c 01/12/2019 [facility] Glycohemoglobin 4.7 % N 4.2-6.3 [address] (A1c) [place] [address] [phone] eAG 88 mg/dL Urine Dipstick 01/12/2019 [facility] Ua Color yellow Yellow Ua Clarity clear Clear Ua Leuko negative Negative Ua Nitrite negative Negative Ua Urobilinogen 0.2 0.2 - 1.0 E.U./dL Ua Protein negative Negative Ua PH 6.5 6.5-7.5 Ua Blood negative Negative Ua Specific [place] 1.010 1.010-1.030 Ua Ketones negative Negative Ua Bilirubin negative Negative Ua Glucose negative Negative Urine Dipstick 12/28/2018 [facility] Ua Color YELLOW Yellow Ua Clarity CLEAR Clear Ua Leuko Trace Negative Ua Nitrite Negative Negative Ua Urobilinogen Negative Low 0.2 - 1.0 E.U./dL Ua Protein Negative Negative Ua PH 5.0 Low 6.5-7.5 Ua Blood Trace Negative Ua Specific [place] 1.000 Low 1.010-1.030 Ua Ketones 1+ High Negative Ua Bilirubin Negative Negative Ua Glucose Negative Negative Urine HCG 12/28/2018 [facility] Urine HCG POSITIVE Abnormal Negative 20, (Qualitative) [address] (Qualitative) 21 [place] [address] [phone] Source: URINE, CLEAN CAT <SEE NOTE> 22 Urine Culture 12/28/2018 [facility] Urine Culture NO GROWTH: [address] FINAL <[place] [address] NOTE> [phone] Ua RFX Micro & 12/28/2018 [facility] Urine Color YELLOW Yellow Culture II [address] [place] [address] [phone] Urine Clarity CLEAR Clear Urine Glucose - Dipstick NEGATIVE mg/dL Negative Urine Bilirubin - Dipstick NEGATIVE Negative Urine Ketone NEGATIVE mg/dL Negative Urine Specific [place] <=1.005 Low 1.010-1.030 Urine Blood NEGATIVE Negative [...] D deficiency has been defined by the [place] [employer] and an Endocrine Society practice guideline as a level of serum 25-OH vitamin D less than 20 ng/mL (1,2). The Endocrine Society went on to further define vitamin D insufficiency as a level between 21 and 29 ng/mL (2). 1. IOM ([place] [employer]). 2010. Dietary reference intakes for calcium and D. [place]: The National Academies Press. 2. Niall MF, Jose Juan WYMAN, Leoncio FARFAN, et al. Evaluation, treatment, and prevention of vitamin D deficiency: an Endocrine Society clinical practice guideline. JCEM. 2010; 96(6):1911-30. Performed at: [address] [id number] Rectification Printer: Nga Swenson MD, Phone: [phone] Negative <0.91 Equivocal 0.91 - 1.09 Positive >1.09 Note: Negative indicates no antibodies detected to HSV-2. Equivocal may suggest early infection. If clinically appropriate, retest at later date. Positive indicates antibodies detected to HSV-2. Performed at: [address] [id number] Rectification Printer: Nga Swenson MD, Phone: [phone] Performed at: [address] [id number] Rectification Printer: Nga Swenson MD, Phone: [phone] GRAM STAIN INDICATES NORMAL GENITAL CAROLANN [...] 0.90 - 0.99 Immune >0.99 Performed at: [address] [id number] Rectification Printer: Nga Swenson MD, Phone: [phone] Performed at: [address] [id number] Rectification Printer: Coty Merlos MD, Phone: [phone] Values <5.0 IU/mL are considered negative for IgG antibodies to rubella virus. 16 INFCE Result Units: s/co ratio Negative: < 0.8 Indeterminate: 0.8 - 0.9 Positive: > 0.9 The CDC recommends that a positive HCV antibody result be followed up with a HCV Nucleic Acid Amplification test (434513). 17 Analysis by inductively coupled plasma/mass spectrometry (ICP/MS) This test was developed and its performance characteristics determined by [employer]. It has not been cleared or approved [...] for more aggressive treatment of glycemia. The [place] [employer] recommends that a primary goal [...] Location Provider Dx Diagnosis Office Visit 12/28/2018 [facility] Kimberly Duke, N91.2 Amenorrhea, 10:15a Eitan Carlisle MD, PHD unspecified O21.0 Mild hyperemesis gravidarum F17.203 Nicotine dependence unspecified, with withdrawal Plan of Treatment Future Appointment(s):03/15/2019 1:30 pm - Kimberly Duke MD, PHD at [facility] Eitan Carlisle12/28/2018 - Kimberly Duke MD, PHDN91.2 Amenorrhea, unspecifiedNew Medication:Unisom Sleepmelts 25 mg - 1/2 tab by mouth four times a day as needed for nauseaPrenatal Gummies/Dha & Folic Acid 0.4-32.5 mg - 2 tab by mouth every dayFollow up:2 week follow up for initial visit. Records releases for [place] [facility] delivery records center.O21.0 Mild hyperemesis gravidarumNew Medication:HM Vitamin B6 100 mg - 1 tab by mouth three times a day as needed for nauseaComments:Discussed Healthy Families -F17.203 Nicotine dependence unspecified, with withdrawal
[2019-03-05 20:36] VITALS: BP 122/59
--- NOTE | 2019-03-05 21:04 | UC ---
General HPI - HPI Summary HPI Summary: 1. BILATERAL EAR PAIN X 2 DAYS. R>L. HX EAR INFECTIONS. NO FEVER, URI OR DISCHARGE FROM THE EARS. 2. CURRENTLY 17 WEEKS . HAVING EPISODIC SHARP PAINS IN HER LOWER ABDOMEN X 1 WEEK. SHE WENT TO THE [facility] FOR THIS AND HAD IV FLUIDS PLUS THEY DID AN U/S AND CHECKED HER URINE THEN DISCHARGED HER TO HOME. SHE HAS NO VAGINAL BLEEDING OR CURRENT PAIN. SHE IS UNDER THE CARE OF DR DUKE FOR HER . - History of Current Complaint Chief Complaint: UCGeneralIllness Stated Complaint: BILAT EAR PAIN/ST/STOMACH CRAMPS/17 WKS PREG Time Seen by Provider: 03/05/19 20:54 Hx Obtained From: Patient Pain Intensity: 4 Associated Signs & Symptoms: Positive: Nausea - OCCASIONAL BUT NONE NOW. Negative: Diarrhea, Dysuria, Fever, Vomiting - Allergy/Home Medications Allergies/Adverse Reactions: Allergies Allergy/AdvReac Type Severity Reaction Status Date / Time Penicillins Allergy Intermediate Hives Verified 03/05/19 20:28 Sulfa (Sulfonamide Allergy Intermediate Hives Verified 03/05/19 20:28 Antibiotics) Home Medications: Home Medications Mv-Mn/Iron/FA/Herbal/Digestive [ One Tablet] 1 tab DAILY 03/05/19 [ History Confirmed 03/05/19] PMH/Surg Hx/FS Hx/Imm Hx - Additional Past Medical History Additional PMH: 17 WEEKS Other History Of: Negative For: Anticoagulant Therapy - Surgical History Surgical History: None Surgery Procedure, Year, and Place: n/a - Family History Known Family History: Positive: Cardiac Disease, Diabetes - aunt with DM, Other - DM - aunt, gallblader removed - mother, Non-Contributory Family History: positive for biploar disorder in paternal half brother - Social History Lives: With Family Alcohol Use: None Substance Use Type: None Smoking Status (MU): Light Every Day Tobacco Smoker Type: Cigarettes Amount Used/How Often: 3-4 CIG/DAY Length of Time of Smoking/Using Tobacco: 3 YEARS Have You Smoked in the Last Year: Yes Household Exposure Type: Cigarettes - Immunization History Most Recent Influenza Vaccination: 07/11/14 Most Recent Pneumonia Vaccination: never Vaccination Up to Date: Yes Review of Systems All Other Systems Reviewed And Are Negative: Yes Constitutional: Negative: Fever ENT: Positive: Ear Ache. Negative: Sore Throat, Sinus Pain/Tenderness Respiratory: Negative: Shortness Of Breath, Cough Gastrointestinal: Positive: Nausea. Negative: Vomiting, Diarrhea Genitourinary: Negative: Dysuria, Hematuria Physical Exam Triage Information Reviewed: Yes Appearance: Well-Appearing Vital Signs: Initial Vital Signs Temp 98.5 F 03/05/19 20:29 Pulse 97 03/05/19 20:29 Resp 16 03/05/19 20:29 BP 122/59 03/05/19 20:29 Pulse Ox 100 03/05/19 20:29 Vital Signs Reviewed: Yes Eyes: Positive: Conjunctiva Clear ENT: Positive: Pharynx normal, TMs normal - L, R is yellow. canals are clear and no mastoid tenderness.. Negative: Nasal congestion, Nasal drainage Neck: Positive: Supple, Nontender, No Lymphadenopathy Respiratory: Positive: Lungs clear, Normal breath sounds, No respiratory distress Cardiovascular: Positive: RRR, No Murmur Abdomen Description: Positive: Other: - + BS. gravid uterus. non tender. no hsm or cva tenderness. Musculoskeletal: Positive: ROM Intact Neurological: Positive: Alert Psychological: Positive: Age Appropriate Behavior Skin Exam: Normal Course/Dx - Differential Dx - Multi-Symptom Differential Diagnoses: Other - non toxic. no acute abdomen and no abdominal pain now plus already seen [place] [facility] [place] the abdominal pain and worked up with an u/s, u/a and given IV fluids thus directed to f/u with her ob. R om on exam. hx hives from pcn thus will tx with cefdinir. - Diagnoses Provider Diagnosis: Otitis media, Abdominal pain during Discharge - Sign-Out/Discharge Documenting (check all that apply): Patient Departure All imaging exams completed and their final reports reviewed: No Studies - Discharge Plan Condition: Stable Disposition: HOME Prescriptions: Cefdinir cap* [Cefdinir 300 MG cap (NF)] 300 mg PO BID 10 Days #20 cap Patient Education Materials: Ear Infection (ED), Abdominal Pain in ( ED) Referrals: Kimberly Duke MD [Primary Care Provider] - 1 Day Additional Instructions: GO TO THE ER FOR ANY WORSENING - Billing Disposition and Condition Condition: STABLE Disposition: Home - Attestation Statements Provider Attestation: Per institutional requirements, I have reviewed the chart, however, I was not consulted specifically or made aware of this patient by the midlevel provider. I did not personally evaluate, interact with , or disposition this patient.
== END 2019-03-05 21:16 | disposition home or self-care (01) ==
LOC: UCCORT 19:38
DX: O99.89 Other specified diseases and conditions complicating pregnancy, childbirth and the puerperium (principal); H92.03 Otalgia, bilateral; O26.892 Other specified pregnancy related conditions, second trimester; R10.30 Lower abdominal pain, unspecified; O99.332 Smoking (tobacco) complicating pregnancy, second trimester; Z3A.17 17 weeks gestation of pregnancy; Z88.0 Allergy status to penicillin; Z88.2 Allergy status to sulfonamides
CPT/HCPCS: 99212; G0463

== ENCOUNTER 2019-07-30 14:15 | Emergency (ER) | payer OTHER ==
--- OUTSIDE RECORDS SUMMARY | 2019-07-30 14:23 | XMS REPORT ---
:1995 Author Organization [facility] Care Team Providers Name Role Phone Cherie Burgos Primary Care Physician Unavailable Allergies, Adverse Reactions, Alerts Allergy Code CodeSystem Reaction Severity Criticality Status Start Substance Date Moderate Medications Medication Medication Medication Start Stop Route Dose Status Fill Code CodeSystem Date Date Instructions RxNorm Problems Problem Name Code CodeSystem Alternate Alternate Start End Status Narrative Code CodeSystem Date Date Conduct 03643142 SNOMED-CT Active disorder, 11-24 unspecified Conduct 39042644 SNOMED-CT Active disorder, 11-24 unspecified Bipolar 02422118 SNOMED-CT Active affective 4-08 disorder, unspecified Relevant diagnostic tests/laboratory data Narrative No Information Procedures Procedure Code CodeSystem Target Date of Status Service Device Device Device Name Site Procedure Delivery Code Name UID Location Psychother 0632214 SNOMED-CT () 2019-06-15 completed Mental apy, 45 4 Health- minutes [facility] with [facility] patient [address] [place] [address], [id number] SNOMED-CT () 2019-05-[address], [id number] SNOMED-CT () 2019-05-[address], [id number] SNOMED-CT () 2019-05-[address], [id number] Encounters/Encounter Diagnoses Encounter Name Encounter Diagnosis Diagnosis Diagnosis Date of Service Code Code Name CodeSystem Diagnosis Delivery Location Psychotherapy - [id number] Bipolar SNOMED-CT 2019-07-20 Behavioral Individual 30 affective Health min disorder, Clinic , , unspecified , Vital Signs No Information Social History Element Description Description Start End Code CodeSystem AdditionalInfo Date Date SexAssignedAtBirth Female 1995-0 F AdministrativeGender 9-17 Hospital Discharge Instructions Reason For Referral Medical Equipment FDA Assessments
--- OUTSIDE RECORDS SUMMARY | 2019-07-30 14:23 | XMS REPORT | Continuity of Care Document ---
:1995 External Reference #:[id number] Author Name Danny Hess MD (transmitted by agent of provider Stephania Hubbard) Address [address] [place] [id number] Care Team Providers Name Role Phone Orin Gutierrez MD - Internal Care Team Information Senior Media Buyer Medicine Problems Description No Active Problems Social History Type Date Description Comments Sex Unknown ETOH Use Denies alcohol use Tobacco Use Start: Unknown Light tobacco smoker (10 or fewer cigarettes/day) Recreational Drug Use Denies Drug Use Smoking Status Reviewed: 07/05/19 Light tobacco smoker (10 or fewer cigarettes/day) Exercise Type/Frequency Exercises rarely Allergies, Adverse Reactions, Alerts Active Allergies Reaction Severity Comments Date Sulfa hives as a child Ampicillin 01/27/2018 Medications Description No Active Medications Immunizations Description No Information Available Vital Signs Date Vital Result Comment 07/05/2019 8:54am Height 67 inches 5'7" Weight 204.50 lb Heart Rate 87 /min BP Systolic 124 mmHg BP Diastolic 74 mmHg Body Temperature 96.7 F O2 % BldC Oximetry 98 % BMI (Body Mass Index) 32.0 kg/m2 06/16/2018 2:28pm Height 67 inches 5'7" Weight 201.00 lb Heart Rate 68 /min BP Systolic 131 mmHg BP Diastolic 78 mmHg O2 % BldC Oximetry 100 % BMI (Body Mass Index) 31.5 kg/m2 Results Description No Information Available Procedures Description No Information Available Medical Devices Description No Information Available Encounters Description No Information Available Assessments Date Code Description Provider 07/05/2019 B37.2 Candidiasis of skin and nail Danny Hess MD 07/05/2019 F41.9 Anxiety disorder, unspecified Danny Hess MD 07/05/2019 F17.210 Nicotine dependence, cigarettes, uncomplicated Danny Hess MD 07/05/2019 F31.9 Bipolar disorder, unspecified Danny Hess MD Plan of Treatment No Information Available Functional Status Description No Information Available Mental Status Description No Information Available Referrals Description No Information Available
[2019-07-30 14:30] VITALS: BP 113/67
[2019-07-30 16:10] LABS: Influenza A Molecular NEGATIVE (Negative); Influenza B Molecular NEGATIVE (Negative)
--- NOTE | 2019-07-30 16:28 | UC ---
FLU HPI - HPI Summary HPI Summary: 24-year-old female 38 weeks presents with 4 day history of general malaise, fatigue, body aches, nasal congestion, sore throat, and nonproductive cough. Reports subjective fevers during the first 3 days of symptoms but none today. States she had 2 episodes of vomiting the first day and one episode the following day but none since. Also reports a couple episodes of loose stools. She has been tolerating fluids. States son tested positive for the flu a few days ago. Also reports exposure to RSV through her family members day care center. She is currently being treated for a urinary tract infection and is on Macrobid. Notes normal movement. Denies ear pain, dysphagia, chest pain , shortness of breath, abdominal pain or cramping, dysuria, frequency, urgency, hematuria, vaginal discharge, or abnormal vaginal bleeding. - History of Current Complaint Chief Complaint: UCGeneralIllness Stated Complaint: VOMITING DIARRHEA FATIGUE HEADACHE Time Seen by Provider: 07/30/19 15:22 Hx Obtained From: Patient ?: Yes - 38 weeks Pain Intensity: 4 - Allergy/Home Medications Allergies/Adverse Reactions: Allergies Allergy/AdvReac Type Severity Reaction Status Date / Time Penicillins Allergy Intermediate Hives Verified 07/30/19 14:31 Sulfa (Sulfonamide Allergy Intermediate Hives Verified 07/30/19 14:31 Antibiotics) PMH/Surg Hx/FS Hx/Imm Hx Previously Healthy: Yes - Denies significant PMH Other History Of: Negative For: Anticoagulant Therapy - Surgical History Surgical History: None Surgery Procedure, Year, and Place: n/a - Family History Known Family History: Positive: Cardiac Disease, Diabetes - aunt with DM, Other - DM - aunt, gallblader removed - mother Family History: positive for biploar disorder in paternal half brother - Social History Occupation: Unemployed Lives: With Family Alcohol Use: None Substance Use Type: None Smoking Status (MU): Light Every Day Tobacco Smoker Type: Cigarettes Amount Used/How Often: 1/2 pack qd Length of Time of Smoking/Using Tobacco: 3 YEARS Have You Smoked in the Last Year: Yes Household Exposure Type: Cigarettes - Immunization History Most Recent Influenza Vaccination: 07/11/14 Most Recent Pneumonia Vaccination: never Vaccination Up to Date: Yes Review of Systems All Other Systems Reviewed And Are Negative: Yes Constitutional: Positive: Fever, Chills, Fatigue Skin: Negative: Rash Eyes: Negative: Drainage, Eye Redness ENT: Positive: Sore Throat, Ear Ache, Nasal Discharge, Sinus Congestion. Negative: Sinus Pain/Tenderness Respiratory: Positive: Cough. Negative: Shortness Of Breath Cardiovascular: Negative: Palpitations, Chest Pain Gastrointestinal: Positive: Vomiting, Diarrhea, Nausea. Negative: Abdominal Pain Genitourinary: Negative: Dysuria, Hematuria, Frequency, Urgency, Vaginal/Penile Discharge, Abnormal Bleeding Musculoskeletal: Positive: Negative Neurological: Positive: Negative Is Patient Immunocompromised?: No Physical Exam - Summary Physical Exam Summary: GENERAL APPEARANCE: Well developed, well nourished, alert and cooperative, and appears to be in no acute distress. EYES: Conjunctiva clear. No drainage. EARS: External auditory canals and tympanic membranes clear, hearing grossly intact. NOSE: Moderate nasal congestion. No nasal discharge. THROAT: Pharyngeal erythema with post-nasal drip. No tonsilar inflammation, swelling, exudate, or lesions. Uvula midline. NECK: Neck supple, non-tender without lymphadenopathy. CARDIAC: Normal S1 and S2. No S3, S4 or murmurs. Rhythm is regular. There is no peripheral edema, cyanosis or pallor. Extremities are warm and well perfused. Capillary refill is less than 2 seconds. Peripheral pulses intact. LUNGS: Clear to auscultation without rales, rhonchi, wheezing or diminished breath sounds. ABDOMEN: Positive bowel sounds. Soft, nondistended, nontender. No guarding or rebound. No masses or hepatosplenomegally. Fundus consistent with gestational age. No CVA tenderness. MUSKULOSKELETAL: ROM intact to all extremities. No joint erythema or tenderness. Normal muscular development. Normal gait. SKIN: Skin normal color, texture and turgor with no lesions or eruptions. Triage Information Reviewed: Yes Vital Signs: Initial Vital Signs Temp 96.9 F 07/30/19 14:27 Pulse 117 07/30/19 14:27 Resp 20 07/30/19 14:27 BP 113/67 07/30/19 14:27 Pulse Ox 99 07/30/19 14:27 Vital Signs Reviewed: Yes Flu Course/Dx - Course Course Of Treatment: 24-year-old female 38 weeks presents with 4 day history of general malaise, fatigue, body aches, nasal congestion, sore throat, and nonproductive cough. Reports subjective fevers during the first 3 days of symptoms but none today. States she had 2 episodes of vomiting the first day and one episode the following day but none since. Also reports a couple episodes of loose stools. She has been tolerating fluids. States son tested positive for the flu a few days ago. Also reports exposure to RSV through her family members day care center. She is currently being treated for a urinary tract infection and is on Macrobid. Notes normal movement. Denies ear pain, dysphagia, chest pain , shortness of breath, abdominal pain or cramping, dysuria, frequency, urgency, hematuria, vaginal discharge, or abnormal vaginal bleeding. Afebrile. Mildly tachycardic otherwise vital signs stable. Patient had moderate nasal congestion , normal TMs, pharyngeal erythema with postnasal drip, no tonsillar swelling or exudate, no cervical lymphadenopathy, clear bilateral breath sounds, and otherwise unremarkable exam. Rapid flu test was negative. Patient is unable to provide a urine specimen at this time. Reviewed results with the patient. Recommending symptomatic treatment for a viral upper respiratory infection. Patient has a appointment scheduled with her [facility] tomorrow and she was encouraged to return here or follow up with her primary care provider in 2-3 days if symptoms were not improved. Anticipatory guidance and warning symptoms were reviewed with the patient. Verbalizes understanding and agrees with plan of care. - Differential Dx/Diagnosis Differential Diagnosis/HQI/PQRI: Influenza, Pneumonia, RSV, Upper Respiratory Infection Provider Diagnosis: URI, acute Discharge ED - Sign-Out/Discharge Documenting (check all that apply): Patient Departure All imaging exams completed and their final reports reviewed: No Studies - Discharge Plan Condition: Stable Disposition: HOME Prescriptions: Fluticasone NASAL SPRAY 50MCG* [Flonase NASAL SPRAY 50MCG*] 2 spray BOTH NARES DAILY #1 btl Patient Education Materials: Upper Respiratory Infection (ED) Referrals: No Primary Care Phys,NOPCP [Primary Care Provider] - Additional Instructions: The rapid flu test performed in the clinic today was negative. Your history and exam are consistent with a viral upper respiratory infection. Viral infections do not respond to antibiotics and are limited to the treatment of symptoms. Viral infections typically run their course in 7-10 days. Drink plenty of fluids to avoid dehydration especially if you are running any fever. Use a saline rinse kit such as Neti Pot or NeilMed at least twice a day to help thin secretions and promote drainage of the sinuses. Use fluticasone (Flonase) nasal spray 2 sprays each nostril once daily. Take over the counter acetaminophen (Tylenol) according to directions as needed for pain or fever. Use salt water gargles several times a day if you have a sore throat. You may also use Chloraseptic spray or Cepacol lonzenges according to directions which contain a numbing medication and can provide some temporary relief from your sore throat. Follow up with your primary care provider in 2-3 days if symptoms persist. Seek immediate medical attention in the emergency room if you have fever greater than 100.5 F despite taking acetaminophen or ibuprofen, have chest pain , difficulty breathing, are unable to swallow, or have any worsening of symptoms. - Billing Disposition and Condition Condition: STABLE Disposition: Home - Attestation Statements Provider Attestation: Per institutional requirements, I have reviewed the chart, however, I was not consulted specifically or made aware of this patient by the midlevel provider. I did not personally evaluate, interact with , or disposition this patient.
== END 2019-07-30 16:39 | disposition home or self-care (01) ==
LOC: UCEAST 14:15
DX: O99.513 Diseases of the respiratory system complicating pregnancy, third trimester (principal); O23.43 Unspecified infection of urinary tract in pregnancy, third trimester; O99.89 Other specified diseases and conditions complicating pregnancy, childbirth and the puerperium; J06.9 Acute upper respiratory infection, unspecified; R19.7 Diarrhea, unspecified; H92.09 Otalgia, unspecified ear; Z88.0 Allergy status to penicillin; Z88.2 Allergy status to sulfonamides; Z3A.38 38 weeks gestation of pregnancy
CPT/HCPCS: 99212; G0463

== ENCOUNTER 2019-08-13 14:55 | Inpatient (IN) | payer OTHER ==
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
[2019-08-13 17:37] LABS: Urine Benzodiazepine Screen None Detected (None Detect); Urine Opiates Screen None Detected (None Detect)
--- NOTE | 2019-08-13 19:20 | PN ---
Progress Note - Progress Note Date of Service: 08/13/19 Note: S: Pt has been up and walking, resting in chair, was in the tub for about 45 min. Reports UCs feel stronger and closer. O: BP 134/733 HR 91 T 97.7 RR 18 SpO2 99% on RA FHT 140bpm. Moderate variability. +Accels. No decels UCs q 2-4 VE deferred in presence of rupture A: IUP at 39-4/7 in early active labor s/p spontaneous rupture of membranes No evidence of metabolic acidemia P: Continue expectant mgmt. Re-eval in 1-2 hours or sooner PRN
--- NOTE | 2019-08-13 21:21 | PN ---
Progress Note - Progress Note Date of Service: 08/13/19 Note: S: Pt reports UCs stronger but still talking through them O: BP 134/73 HR 91 T 97.7 RR 18 SpO2 99% on RA FHT 155bpm. Moderate variability. +Accels. No decels UCs q 2-3, mild occasionally moderate VE unchanged A: IUP at 39-4/7 with spontaneous rupture of membranes in latent labor No evidence of metabolic acidemia P: Recommend trial IV pitocin augmentation in presence of rupture. PARQ IV placement and use of medication for augmentation. Pt and FOB agree.
[2019-08-13 21:55] LABS: ABS Eosinophils 0.1 10^3/ul (0-0.6); ABS Lymphocytes 2.6 10^3/ul (1.0-4.8); ABS Monocytes 0.9 10^3/ul (0-0.8); ABS Neutrophils 8.3 10^3/ul (1.5-7.7); Eosinophil % 1.2 %; Hematocrit 35 % (35-47); Hemoglobin 11.9 g/dL (12.0-16.0); Lymphocyte % 21.5 %; Mean Corpuscular HGB Conc 34 g/dL (31-36); Mean Corpuscular Hemoglobin 29 pg (27-31); Mean Corpuscular Volume 87 fL (80-97); Mean Platelet Volume 8.8 fL (7.4-10.4); Platelet Count 286 10^3/uL (150-450); Red Blood Count 4.07 10^6 /uL (3.70-4.87); Red Cell Distribution Width 13 % (10-15)
[2019-08-13] MEDS ORDERED: Lactated Ringers 1000 ML Bag* 1,000 ML IV SCH ×2 (22:00)
[2019-08-13] MEDS ORDERED: Oxytocin in LR* 20 UNITS/1,000 ML BAG IVPB SCH (22:00)
[2019-08-13] MEDS ORDERED: Nalbuphine* 10 MG/ML 1 ML VIAL IV ONE ×2 (23:08→23:11)
--- NOTE | 2019-08-13 23:08 | PN ---
Progress Note - Progress Note Date of Service: 08/13/19 Note: Quick Note: After IV placement pt declined the IV pitocin and instead got in the tub. Per RN she's now out of the tub and requesting something for pain. Pt continues to report regular UCs but able to speak through them. Reinforced recommendation to augment labor and encourage onset active labor. Pt again declines and requests something for pain. Discussed pain relief options: Epidural/ITF vs. IV pain relief vs. Nitrous Oxide. All ?s answered. Pt opts for IV pain medicine. PARQ IV Nubain/Phenergan. Pt desires. Pt agrees to NST prior to IV pain relief.
[2019-08-13] MEDS ORDERED: Promethazine INJ(RESTRICTED)* 25 MG/ML 1 ML VIAL IV ONE (23:09)
--- NOTE | 2019-08-14 01:12 | PN ---
Progress Note - Progress Note Date of Service: 08/14/19 Note: Quick Note: Pt is sound asleep s/p IV Nubain/Phenergan. Will re-eval upon waking or sooner PRN.
--- NOTE | 2019-08-14 06:56 | PN ---
Progress Note - Progress Note Date of Service: 08/14/19 Note: S: Pt was able to sleep some overnight s/p IV Nubain and Phenergan. Reports UCs are again bothersome but she's able to sleep between them. Reports that she's open to re-visiting IV pitocin augmentation at this time. O: BP 93/47 HR 96 T 98.4 FHT 135bpm. Moderate variability. +Accels. No decels UCs q 5 min VE deferred in presence of rupture A: IUP at 39-5/7 with prelabor rupture of membranes x 18 + hours No evidence of metabolic acidemia P: Lengthy review of prelabor rupture of membranes, risks of infection with prolonged rupture, and strong recommendation to initiate IV pitocin augmentation. At this time pt agrees to start IV pitocin augmentation but would also like a repeat dose of IV Nubain and Phenergan. Report to Angie Rios who will assume care at 0800.
[2019-08-14] MEDS ORDERED: Nalbuphine* 10 MG/ML 1 ML VIAL IV ONE (06:58)
[2019-08-14] MEDS ORDERED: Promethazine INJ(RESTRICTED)* 25 MG/ML 1 ML VIAL IV ONE (06:59)
[2019-08-14] MEDS ORDERED: Dibucaine 1% 28.35 GM TUBE PR PRN (09:05)
[2019-08-14] MEDS ORDERED: Witch Hazel PAD* JAR TOPICAL PRN (09:05)
[2019-08-14] MEDS ORDERED: Glycerin ADULT SUPP PR PRN (09:05)
--- NOTE | 2019-08-14 09:20 | PROCNOTE ---
[facility] OB: Delivery Note - Delivery A Date of : 08/14/19 Time of : 08:30 [place] Sex: Female Weight at : 3.865 kg Score 1 Minute: 8 Score 5 Minutes: 9 Gestational Age in Weeks and Days at Delivery: 39 Weeks and 4 Days Delivery Method: Spontaneous Vaginal Labor: Spontaneous - augmented Did Patient attempt ?: N/A, No Previous Amniotic Fluid: Meconium Anesthesia/Analgesia: IM/IV - Nubain and phenergan Delivered By: Hellen Holt - Nursery Level of Nursery: Regular/Bedside - Perineum Perineal Injury: None/Intact Perineal Repair: None - Events Delivery Events of Note: Pitocin During Labor - Additional Delivery Notes Additional Delivery Notes: Pt admitted to L&D with prelabor rupture of membranes. Pt initially declined augmentation and was managed expectantly before agreeing to Pitocin augmentation. She had IV Nubain and Phenergan for pain relief. Soon after initiating Pitocin augmentation pt began to feel urge to push. Spontaneous bearing down efforts ensued with good descent. Forebag ruptured to meconium stained fluid and speacial care RN called to bedside for delivery. Pt soon brought to and was coached through slow controlled delivery of the head. with spontaneous cry, brought to maternal abdomen, dried and stimulated. After cord pulsation ceased cord clamped x2 and cut by infant's father. Placenta soon delivered spontaneously, alondra side. Clots expressed and fundus firm, minimal bleeding following expression of clots. Examination of the perineum revealed it to be intact. Infant at this time. Anticipate normal course.
[2019-08-14] MEDS ORDERED: Lactated Ringers 1000 ML Bag* 1,000 ML IV SCH (10:00)
[2019-08-14] MEDS ORDERED: Oxytocin in LR* 20 UNITS/1,000 ML BAG IVPB SCH (10:00)
[2019-08-14] MEDS: Ibuprofen TAB* 600 MG PO PRN ×2 (12:24→18:41)
[2019-08-14] MEDS: Acetaminophen TAB* 325 MG PO PRN ×2 (17:34→22:36)
[2019-08-14] MEDS: Docusate CAP* 100 MG PO SCH ×2 (17:34→21:27)
[2019-08-15] MEDS: Acetaminophen TAB* 325 MG PO PRN (03:55)
[2019-08-15] MEDS: Ibuprofen TAB* 600 MG PO PRN ×2 (03:55→10:14)
[2019-08-15 07:30] LABS: ABS Basophils 0.1 10^3/ul (0-0.2); ABS Eosinophils 0.3 10^3/ul (0-0.6); ABS Lymphocytes 2.9 10^3/ul (1.0-4.8); ABS Monocytes 0.8 10^3/ul (0-0.8); ABS Neutrophils 7.4 10^3/ul (1.5-7.7); Eosinophil % 2.7 %; Hematocrit 33 % (35-47); Hemoglobin 11.1 g/dL (12.0-16.0); Lymphocyte % 25.5 %; Mean Corpuscular HGB Conc 34 g/dL (31-36); Mean Corpuscular Hemoglobin 29 pg (27-31); Mean Corpuscular Volume 86 fL (80-97); Mean Platelet Volume 8.4 fL (7.4-10.4); Platelet Count 234 10^3/uL (150-450); Red Blood Count 3.78 10^6 /uL (3.70-4.87); Red Cell Distribution Width 13 % (10-15); White Blood Count 11.5 10^3/uL (3.5-10.8)
[2019-08-15 08:55] VITALS: BP 120/64
[2019-08-15] MEDS ORDERED: Ferrous Gluconate TAB* 324 MG TAB PO SCH (09:00)
[2019-08-15] MEDS: Docusate CAP* 100 MG PO SCH (10:14)
== END 2019-08-15 11:20 | disposition home or self-care (01) | DRG 560 ==
LOC: MCHOBOUT 14:55 → MCHOB 16:49
PROVIDERS: ADMIT Midwife; ATTEND Midwife
PROC: 10E0XZZ Delivery of Products of Conception, External Approach (ICD-10-PCS; principal; 2019-08-14)
DX: O99.344 Other mental disorders complicating childbirth (principal); Z37.0 Single live birth; F32.9 Major depressive disorder, single episode, unspecified; F90.9 Attention-deficit hyperactivity disorder, unspecified type; F43.10 Post-traumatic stress disorder, unspecified; O77.0 Labor and delivery complicated by meconium in amniotic fluid; Z3A.39 39 weeks gestation of pregnancy
CPT/HCPCS: 36415; 80307; 84112; 85025; 86850; 86900; 86901; A9270-GY; J2300; J2550